=== PATIENT | female | born 1985 | race Caucasian/White ===

== ENCOUNTER 2023-11-16 15:18 | Outpatient (CLI) | payer OTHER ==
[~2023-11-16 15:18] MED LIST: ANAPROX275 MG PO; RHOGAM300 MCG/SY IM
== END 2023-11-16 15:19 | disposition home or self-care (01) ==
LOC: PRENATAL 15:18
PROVIDERS: ATTEND Obstetrics & Gynecology Maternal & Fetal Medicine
DX: O35.9XX0 Maternal care for (suspected) fetal abnormality and damage, unspecified, not applicable or unspecified (principal); O35.3XX0 Maternal care for (suspected) damage to fetus from viral disease in mother, not applicable or unspecified; O44.02 Complete placenta previa NOS or without hemorrhage, second trimester; O09.522 Supervision of elderly multigravida, second trimester; O36.0920 Maternal care for other rhesus isoimmunization, second trimester, not applicable or unspecified; Z3A.19 19 weeks gestation of pregnancy

== ENCOUNTER → 2024-02-20 09:52 | Outpatient (CLI) | payer OTHER | END | disposition home or self-care (01) | LOC: PRENATAL 09:52 | PROVIDERS: ATTEND Obstetrics & Gynecology Maternal & Fetal Medicine | DX: O26.849 Uterine size-date discrepancy, unspecified trimester (principal); O36.8199 Decreased fetal movements, unspecified trimester, other fetus; O09.529 Supervision of elderly multigravida, unspecified trimester; O36.1999 Maternal care for other isoimmunization, unspecified trimester, other fetus; Z3A.33 33 weeks gestation of pregnancy ==